=== PATIENT | female | born 1980 | race Caucasian/White ===

== ENCOUNTER 2022-01-12 16:06 | Emergency (ER) | payer OTHER ==
[2022-01-12 18:55] LABS: HEMOGLOBIN 11.7 gm/dl (12.3-15.3); RED BLOOD COUNT 3.75 M/UL (4.00-5.10); WHITE BLOOD COUNT 1.7 K/UL (4.5-11.0)
[2022-01-12 19:50] LABS: BUN/CREATININE RATIO 20 (0-10)
[2022-01-12] MEDS ORDERED: SPIRONOLACTONE25 MG PO (21:25)
[2022-01-14 08:13] LABS: HIV AB/P24 AG SCREEN Non Reactive (Non Reactive)
== END 2022-01-12 21:34 | disposition home or self-care (01) ==
LOC: ER1 16:06
PROVIDERS: Physician Assistant
DX: K74.60 Unspecified cirrhosis of liver (principal); D61.818 Other pancytopenia; F11.23 Opioid dependence with withdrawal; K21.9 Gastro-esophageal reflux disease without esophagitis; F17.200 Nicotine dependence, unspecified, uncomplicated; Z79.899 Other long term (current) drug therapy
CPT/HCPCS: 71045; 80053; 80074; 81001; 82550; 82553; 83690; 84484; 84703; 85025; 85610; 85730; 87389; 93005; 99285

== ENCOUNTER 2022-02-27 16:06 | Emergency (ER) | payer OTHER ==
[~2022-02-27 16:06] MED LIST: SPIRONOLACTONE25 MG PO
[2022-02-27 18:06] LABS: HEMOGLOBIN 11.8 gm/dl (12.3-15.3); RED BLOOD COUNT 3.68 M/UL (4.00-5.10); WHITE BLOOD COUNT 3.1 K/UL (4.5-11.0)
[2022-02-27 18:33] LABS: BUN/CREATININE RATIO 10 (0-10)
[2022-02-27] MEDS ORDERED: SPIRONOLACTONE50 MG PO (19:53)
[2022-02-27] MEDS ORDERED: FUROSEMIDE20 MG PO (19:53)
[2022-02-27] MEDS ORDERED: LACTULOSE20 GM/30 M PO (19:53)
[2022-02-27] MEDS ORDERED: ZOFRAN ODT 4 MG4 MG PO (19:53)
== END 2022-02-27 20:00 | disposition home or self-care (01) ==
LOC: ER1 16:06
PROVIDERS: Physician Assistant
DX: K74.60 Unspecified cirrhosis of liver (principal); D61.818 Other pancytopenia; F17.200 Nicotine dependence, unspecified, uncomplicated
CPT/HCPCS: 71045; 80053; 81001; 82550; 82553; 83880; 84484; 85025; 93005; 99284